=== PATIENT | male | born 1970 ===

== ENCOUNTER 2021-03-27 07:23 | Emergency (ER) | payer SELFPAY ==
[2021-03-27] MEDS ORDERED: LIDOCAINE-MPF (1%) 10 MG/1 ML VIAL 5 ML INFILTRATI ONE (07:42)
--- NOTE | 2021-03-27 07:42 | Emergency Department Report ---
- General Chief Complaint: Extremity Injury, Lower Stated Complaint: GLASS IN RT FOOT Time Seen by Provider: 03/27/21 07:37 Source: patient Mode of arrival: Ambulatory Limitations: No Limitations - History of Present Illness Initial Comments: Patient is a 50-year-old male that presents to the emergency room with concerns of glass in his foot. He states that he stepped on some broken glass over a month ago. He did not seek any medical attention until now. He has an area between his first and second toe that appears to be an old healing wound. This is where he thinks there is glass -: week(s) Place: home Patient Tetanus UTD: No Context: accidental Associated Symptoms: none - Related Data Previous Rx's Medication Instructions Recorded Last Taken Type cephALEXin [Keflex] 500 mg PO Q12HR #20 cap 03/27/21 Unknown Rx Allergies Allergy/AdvReac Type Severity Reaction Status Date / Time No Known Allergies Allergy Verified 03/27/21 07:26 ED Review of Systems ROS: Stated complaint: GLASS IN RT FOOT Other details as noted in HPI Comment: All other systems reviewed and negative ED Past Medical Hx - Past Medical History Previous Medical History?: No - Surgical History Past Surgical History?: No - Family History Family history: no significant - Social History Smoking Status: Never Smoker Substance Use Type: Marijuana - Medications Home Medications: Home Medications Medication Instructions Recorded Confirmed Last Taken Type cephALEXin [Keflex] 500 mg PO Q12HR #20 cap 03/27/21 Unknown Rx ED Physical Exam - General Limitations: No Limitations General appearance: alert, in no apparent distress - Head Head exam: Present: atraumatic, normocephalic - Eye Eye exam: Present: normal appearance - ENT ENT exam: Present: mucous membranes moist - Neck Neck exam: Present: normal inspection - Respiratory Respiratory exam: Present: normal lung sounds bilaterally. Absent: respiratory distress - Cardiovascular Cardiovascular Exam: Present: regular rate, normal rhythm. Absent: systolic murmur, diastolic murmur, rubs, gallop - GI/Abdominal GI/Abdominal exam: Present: soft, normal bowel sounds - Rectal Rectal exam: Present: deferred - Extremities Exam Extremities exam: Present: normal inspection - Back Exam Back exam: Present: normal inspection - Neurological Exam Neurological exam: Present: alert, oriented X3 - Psychiatric Psychiatric exam: Present: normal affect, normal mood - Skin Skin exam: Present: warm, dry, intact, normal color, other. Absent: rash - Other Other exam information: between right great toe and second toe pt has red area that is inflammed that he thinks has glass in it. no purulent drainage ambulatory neurovasc intact ED Course Vital Signs 03/27/21 07:28 Temperature 98.2 F Pulse Rate 68 Respiratory 20 Rate Blood Pressure 123/69 O2 Sat by Pulse 99 Oximetry ED Medical Decision Making - Medical Decision Making zulay andrew is utd discussed wound care with the patient. I have informed him that in the emergency room we are not been a open areas and search for foreign bodies. I have informed him that an x-ray would not show glass. I have informed him that if it is a small piece of glass it will in fact work its way out most likely over time. I have also informed him that if he wanted to have the foot explored that would be done by an orthopedic or general surgeon. Wound care has been provided. Patient educated on how to care for wound. Patient discharged home with discharge plan of care including medications, wound care and follow-up. Patient verbalizes understanding. Vital Signs 03/27/21 07:28 Temperature 98.2 F Pulse Rate 68 Respiratory 20 Rate Blood Pressure 123/69 O2 Sat by Pulse 99 Oximetry - Differential Diagnosis ? fb foot/ 1 month old Critical care attestation.: If time is entered above; I have spent that time in minutes in the direct care of this critically ill patient, excluding procedure time. ED Disposition Clinical Impression: Wound of foot Disposition: 01 HOME / SELF CARE / HOMELESS Is pt being admited?: No Does the pt Need Aspirin: No Condition: Stable Additional Instructions: SOAK FOOT IN EPSOM SALTS AND WARM WATER FOR 1 HOUR SEVERAL TIMES PER DAY IF THERE IS GLASS IN THE FOOT WITH TIME IT SHOULD WORK ITS WAY OUT- IF NOT- SURGICAL EXPLORATION WOULD BE NEEDED (IF PAINFUL AND CAUSING A PROBLEM) MOTRIN OR TYLENOL FOR PAIN MED ORDERED TODAY FOR INFECTION FOLLOW UP WITH PCP REFERRAL BELOW ALSO A GEN SURG REFERRAL BELOW FOR EXPLORATION OF WOUND Prescriptions: cephALEXin [Keflex] 500 mg PO Q12HR #20 cap Referrals: ANGIE DILL MD [Staff Physician] - 3-5 Days RUSLAN DURANT MD [Staff Physician] - 3-5 Days Forms: Work/School Release Form(ED) Time of Disposition: 07:48
[2021-03-27 08:00] VITALS: BP 123/69
== END 2021-03-27 08:24 | disposition home or self-care (01) ==
LOC: ED 07:23
DX: S91.331A Puncture wound without foreign body, right foot, initial encounter (principal); F12.10 Cannabis abuse, uncomplicated; W25.XXXA Contact with sharp glass, initial encounter; Y93.89 Activity, other specified; Y92.89 Other specified places as the place of occurrence of the external cause; Y99.8 Other external cause status
CPT/HCPCS: 96372; 99281; J0696